=== PATIENT | male | born 1985 | race Caucasian/White ===

== ENCOUNTER 2020-01-28 09:47 | Emergency (ER) | payer MEDICARE ==
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
--- NOTE | 2020-01-28 11:06 | CR ---
Left knee: AP, lateral and sunrise patellar views of the left knee were obtained. Comparison: No prior left knee study. Medial and lateral joint compartments are maintained in height. Left patellofemoral joint appears within normal limits. No joint effusion is seen. No acute fracture or other bony abnormality is identified. Impression: 1. No abnormality is identified on 3 view left knee exam. Diagnostic code #1 Study was dictated in MDT
== END 2020-01-28 11:50 | disposition home or self-care (01) ==
LOC: JD.ED 09:47
DX: S83.412A Sprain of medial collateral ligament of left knee, initial encounter (principal); S80.02XA Contusion of left knee, initial encounter; Z88.1 Allergy status to other antibiotic agents; X50.1XXA Overexertion from prolonged static or awkward postures, initial encounter
CPT/HCPCS: 73562-26-LT; 73562-LT; 99283; 99283-25